=== PATIENT | female | born 1970 | race African-American/Black ===

== ENCOUNTER 2016-03-26 07:33 | Emergency (ER) | payer BC ==
[~2016-03-26] VITALS: Ht 152.4 cm; Wt 99.8 kg
[~2016-03-26 07:33] MED LIST: ACCUNEB SO1.25 MG/1; ACCUNEB SO1.25 MG/1 INH; ADVAIR HFA115 MCG/21 INH; ALBUTEROL2.5 MG/31 INH; BENADRYL25 MG PO; CEPACOL SORE T1 EAC9; CLARITIN10 MG; FERRACTIV IRON1 EACH PO; HYDROCODON-ACE1 EAC7 PO; IBUPROFEN 800800 MG PO; IRON325 PO; LEVOTHYROXIN0.025 MG PO; LOMOTIL TABLET1 EACH PO; MEDROL DOSPAK21 TAB PO; NORCO 5-325 TA1 EACH PO; PEPCID AC20 M1 PO; PREDNISONE 10 M10 MG; PREDNISONE 10 M10 MG PO; PREDNISONE 20 M20 M1 PO; PREDNISONE 20 M20 MG PO; PREDNISONE50 MG PO; PROAIR HFA8.5 GM INH; PROMETHAZINE-C120 ML PO; PROVENTIL HFA6.7 G1 INH; SINGULAIR 10 MG10 M1; VENTOLIN HFA 1818 GM INH; ZOFRAN4 MG PO; ZPAK; ZPAK PO
[2016-03-26] MEDS ORDERED: PROAIR HFA8.5 GM INH (08:00)
[2016-03-26] MEDS ORDERED: PREDNISONE50 MG PO (08:00)
== END 2016-03-26 08:40 | disposition home or self-care (01) ==
LOC: ER 07:33
DX: J45.901 Unspecified asthma with (acute) exacerbation (principal); E03.9 Hypothyroidism, unspecified; Z88.0 Allergy status to penicillin; F17.210 Nicotine dependence, cigarettes, uncomplicated; F10.99 Alcohol use, unspecified with unspecified alcohol-induced disorder

== ENCOUNTER 2016-12-14 01:01 | Emergency (ER) | payer OTHER ==
[~2016-12-14] VITALS: Ht 152.4 cm; Wt 104.3 kg
[2016-12-14] MEDS ORDERED: PREDNISONE 10 M10 MG (01:19)
[2016-12-14] MEDS ORDERED: PREDNISONE 20 M20 MG PO (02:06)
[2016-12-14] MEDS ORDERED: VENTOLIN HFA 1818 GM INH (02:06)
== END 2016-12-14 02:23 | disposition home or self-care (01) ==
LOC: ER 01:01
DX: J45.901 Unspecified asthma with (acute) exacerbation (principal); E03.9 Hypothyroidism, unspecified; F10.99 Alcohol use, unspecified with unspecified alcohol-induced disorder; Z86.2 Personal history of diseases of the blood and blood-forming organs and certain disorders involving the immune mechanism; Z88.0 Allergy status to penicillin; Z87.891 Personal history of nicotine dependence

== ENCOUNTER 2017-05-21 19:22 | Emergency (ER) | payer OTHER ==
[~2017-05-21] VITALS: Ht 152.4 cm; Wt 103.4 kg
[~2017-05-21 19:22] MED LIST changes: +CIPRO500 MG PO; +FLAGYL500 MG PO
[2017-05-21 19:48] LABS: ABSOLUTE NEUTROPHILS 6.7 thou/uL (1.4-8.2); BASOPHILS 0.5 % (0.0-2.0); HEMATOCRIT 35.4 % (37.0-47.0); HEMOGLOBIN 11.8 gm/dL (12.0-15.0); LYMPHOCYTES 21.6 % (24.0-44.0); MCH 29.6 pg (26.0-34.0); MCHC 33.3 g/dL (28.0-37.0); MCV 88.8 fL (80.0-100.0); PLATELET COUNT 280 thou/uL (150-400); POLYS 69.9 % (36.0-66.0); RBC 3.99 mil/uL (4.20-5.00); RDW 17.4 % (10.5-14.5); WBC 9.5 thou/uL (4.0-11.0)
[2017-05-21 19:49] LABS: URINE BILIRUBIN NEGATIVE (Negative); URINE BLOOD TRACE (Negative); URINE CLARITY CLEAR; URINE COLOR YELLOW; URINE GLUCOSE-RANDOM* NEGATIVE (Negative); URINE KETONES NEGATIVE (Negative); URINE LEUKOCYTES-REFLEX TRACE (Negative); URINE NITRITE-REFLEX NEGATIVE (Negative); URINE PROTEIN (DIPSTICK) TRACE (Negative); URINE UROBILINOGEN 0.2 E.U./dl (0.2-1.0)
[2017-05-21 19:55] LABS: CALCIUM 9.6 mg/dL (8.5-10.1); CREATININE 1.1 mg/dL (0.6-1.0); POTASSIUM 4.1 mmol/L (3.5-5.1)
[2017-05-21 20:01] LABS: ALBUMIN 3.7 g/dL (3.4-5.0); TOTAL BILIRUBIN 0.3 mg/dL (<0.1-1.0); TOTAL PROTEIN 8.1 g/dL (6.4-8.2)
[2017-05-21] MEDS ORDERED: CIPROFLOXACIN500 M1 PO (21:02)
[2017-05-21] MEDS ORDERED: SENNA-DOCUSATE1 EACH PO (21:02)
[2017-05-21] MEDS ORDERED: FLAGYL500 M1 PO (21:02)
[2017-05-21] MEDS ORDERED: ZOFRAN ODT4 MG PO (21:02)
[2017-05-21] MEDS ORDERED: NORCO 5-325 TA1 EACH PO (21:02)
[2017-05-21 21:53] VITALS: BP 139/98
== END 2017-05-21 21:55 | disposition home or self-care (01) ==
LOC: ER 19:22
PROVIDERS: Emergency Medicine
DX: K57.92 Diverticulitis of intestine, part unspecified, without perforation or abscess without bleeding (principal); E03.9 Hypothyroidism, unspecified; J45.909 Unspecified asthma, uncomplicated; Z86.2 Personal history of diseases of the blood and blood-forming organs and certain disorders involving the immune mechanism; Z88.0 Allergy status to penicillin; Z87.891 Personal history of nicotine dependence

== ENCOUNTER 2017-11-26 00:14 | Emergency (ER) | payer OTHER ==
[~2017-11-26] VITALS: Ht 152.4 cm; Wt 102.1 kg
[~2017-11-26 00:14] MED LIST changes: +CIPROFLOXACIN500 M1 PO; +FLAGYL500 M1 PO; +SENNA-DOCUSATE1 EACH PO; +ZOFRAN ODT4 MG PO
[2017-11-26 00:50] LABS: ABSOLUTE NEUTROPHILS 7.1 thou/uL (1.4-8.2); BASOPHILS 0.3 % (0.0-2.0); EOSINOPHILS 4.2 % (0.0-3.0); HEMATOCRIT 38.2 % (37.0-47.0); HEMOGLOBIN 13.1 gm/dL (12.0-15.0); LYMPHOCYTES 13.9 % (24.0-44.0); MCH 32.1 pg (26.0-34.0); MCHC 34.3 g/dL (28.0-37.0); MCV 93.8 fL (80.0-100.0); MONOCYTES 6.2 % (1.0-8.0); PLATELET COUNT 256 thou/uL (150-400); POLYS 75.4 % (36.0-66.0); RBC 4.07 mil/uL (4.20-5.00); RDW 14.9 % (10.5-14.5); WBC 9.4 thou/uL (4.0-11.0)
[2017-11-26 00:53] LABS: CALCIUM 9.7 mg/dL (8.5-10.1); CREATININE 1.1 mg/dL (0.6-1.0); POTASSIUM 3.4 mmol/L (3.5-5.1)
[2017-11-26 00:59] LABS: ALBUMIN 3.6 g/dL (3.4-5.0); TOTAL BILIRUBIN 0.3 mg/dL (<0.1-1.0); TOTAL PROTEIN 8.2 g/dL (6.4-8.2)
[2017-11-26] MEDS ORDERED: ZPAK PO (01:09)
[2017-11-26] MEDS ORDERED: PREDNISONE 20 M20 MG PO (01:09)
[2017-11-26] MEDS ORDERED: PROAIR HFA8.5 GM INH (01:09)
== END 2017-11-26 01:49 | disposition home or self-care (01) ==
LOC: ER 00:14
PROVIDERS: Emergency Medicine
DX: J45.901 Unspecified asthma with (acute) exacerbation (principal); E03.9 Hypothyroidism, unspecified; Z87.891 Personal history of nicotine dependence; Z88.0 Allergy status to penicillin; Z86.2 Personal history of diseases of the blood and blood-forming organs and certain disorders involving the immune mechanism

== ENCOUNTER 2018-02-24 17:35 | Inpatient (IN) | payer OTHER ==
[~2018-02-24] VITALS: Ht 170.2 cm; Wt 49.4 kg
--- NOTE | ~2018-02-24 | 2DMMODE ---
[facility] [place] [address] 2 D/M-MODE ECHOCARDIOGRAM Name: JOAQUIN VILLEGAS Room #: 208-P [facility]#: [id number] Admission: 02/24/18 Attend Phys: Gary Azul MD Discharge: Date of : 72 Date of Service: 02/25/[address] [facility] Report #: [id number] THIS REPORT FOR: //name// APPROVED REPORT Study performed: 02/25/2018 11:34:50 EXAM: Comprehensive 2D, Doppler, and color-flow Echocardiogram Patient Location: Bedside Status: routine BSA: 1.98 HR: 98 bpm BP: 129/82 mmHg Rhythm: NSR Other Information Study Quality: Good Indications Short of breath 2D Dimensions RVDd: 34.90 mm IVSd: 12.55 (7-11mm) LVOT Diam: 20.15 (18-24mm) LVDd: 36.01 mm PWd: 10.67 (7-11mm) LVDs: 24.74 (25-40mm) Aortic Root: 29.07 mm Volumes Left Atrial Volume (Systole) Single Plane 4CH: 23.08 mL Single Plane 2CH: 47.27 mL LA ESV Index: 19.00 mL/m2 Aortic Valve AoV Peak Arian.: 1.61 m/s AO Peak Gr.: 10.39 mmHg LVOT Max P.58 mmHg LVOT Max V: 1.28 m/s LEEANNE Vmax: 2.54 cm2 Mitral Valve E/A Ratio: 0.7 MV Decel. Time: 121.86 ms MV E Max Arian.: 1.01 m/s [facility] [address] [place] [address] 2 D/M-MODE ECHOCARDIOGRAM Name: JOAQUIN VILLEGAS Room #: 208-P [facility]#: [id number] Admission: 02/24/18 Attend Phys: Gary Azul MD Discharge: Date of : 72 Date of Service: 02/25/18 1300 Report #: [id number] MV A Arian.: 1.52 m/s MV PHT: 35.34 ms IVRT: 99.19 ms Pulmonary Valve PV Peak Raian.: 1.03 m/s PV Peak Gr.: 4.20 mmHg Pulmonary Vein P Vein S: 0.66 m/s P Vein A: 0.40 m/s P Vein D: 0.61 m/s P Vein A Dur.: 100.3 msec P Vein S/D Ratio: 1.08 Tricuspid Valve TR Peak Arian.: 1.73 m/s RAP Estimate: 5.00 mmHg TR Peak Gr.: 12.01 mmHg PA Pressure: 17.00 mmHg Left Ventricle The left ventricle is normal size. There is normal LV segmental wall motion. Mild concentric left ventricular hypertrophy. Left ventricular systolic function is normal. LVEF is 60-65%. Mild diastolic dysfunction is present (impaired relaxation pattern). Right Ventricle The right ventricle is normal size. The right ventricular systolic function is normal. Atria The left atrium size is normal. The right atrium size is normal. Aortic Valve The aortic valve is normal in structure. No aortic regurgitation is present. There is no aortic valvular stenosis. Mitral Valve The mitral valve is normal in structure. There is no mitral valve regurgitation noted. No evidence of mitral valve stenosis. Tricuspid Valve The tricuspid valve is normal in structure. Trace tricuspid regurgitation. Estimated PAP is 17mmHg. Pulmonic Valve Pulmonic valve is not well visualized. There is no pulmonic valvular [address] [address] 2 D/M-MODE ECHOCARDIOGRAM Name: NELLYJOAQUIN Room #: 208-P [facility]#: [id number] Admission: 02/24/18 Attend Phys: Gary Azul MD Discharge: Date of : 72 Date of Service: 02/25/18 1300 Report #: [id number] regurgitation noted. Great Vessels The aortic root is normal in size. IVC is normal in size and collapses >50% with inspiration. Pericardium There is no pericardial effusion. <Conclusion> Mild concentric left ventricular hypertrophy. Left ventricular systolic function is normal. Mild diastolic dysfunction is present (impaired relaxation pattern). The right ventricle is normal size. The left atrium size is normal. The aortic valve is normal in structure. The mitral valve is normal in structure. Trace tricuspid regurgitation. Estimated PAP is 17mmHg. <ELECTRONICALLY SIGNED> By: Evan Robles MD 02/25/18 1300 1300 1300 Evan Robles MD /INF
--- NOTE | ~2018-02-24 | EKG ---
[address] [address] ELECTROCARDIOGRAM REPORT Name: JOAQUIN VILLEGAS Idania Room #: 208-P [facility] M.R.#: [id number] Admission: 02/24/18 Attend Phys: Gary Azul MD Discharge: Date of : 72 Report #: [id number] THIS REPORT FOR: //name// [facility] ED Test Date: 2018-02-24 Test Time: 17:45:38 Pat Name: JOAQUIN VILLEGAS Department: Room: 208 Gender: F Diesel Motor Mechanic: SHAWN : 1970 Requested By: Kathy Aragon Order Number: [id number] MD: Festus Flores Measurements Intervals [place] Rate: 100 P: 68 [place]: 153 QRS: 53 QRSD: 90 T: 56 QT: 349 QTc: 451 Interpretive Statements Sinus tachycardia Compared to ECG 11/01/2013 20:44:32 Sinus rhythm no longer present Sinus arrhythmia no longer present Electronically Signed On 02-25-2018 11:18:50 GILL TENDER by Festus Flores [email or web address] <ELECTRONICALLY SIGNED> By: Festus Flores MD 02/25/18 1118 1745 1745 Festus Flores MD /BABAK
[2018-02-24 17:49] VITALS: BP 135/96
[2018-02-24 20:00] LABS: BASOPHILS 0.7 % (0.0-2.0); EOSINOPHILS 6.8 % (0.0-3.0); HEMATOCRIT 36.8 % (37.0-47.0); HEMOGLOBIN 12.3 gm/dL (12.0-15.0); LYMPHOCYTES 27.8 % (24.0-44.0); MCH 31.5 pg (26.0-34.0); MCHC 33.5 g/dL (28.0-37.0); MCV 94.3 fL (80.0-100.0); MONOCYTES 5.9 % (1.0-8.0); PLATELET COUNT 293 thou/uL (150-400); POLYS 58.8 % (36.0-66.0); RBC 3.91 mil/uL (4.20-5.00); RDW 17.2 % (10.5-14.5); WBC 6.9 thou/uL (4.0-11.0)
[2018-02-24 20:08] LABS: CALCIUM 9.1 mg/dL (8.5-10.1); CREATININE 0.9 mg/dL (0.6-1.0)
[2018-02-24 21:38] VITALS: BP 138/88
[2018-02-25 00:30] VITALS: BP 146/99
[2018-02-25 04:46] VITALS: BP 129/82
[2018-02-25 09:14] VITALS: BP 129/82
[2018-02-25 09:28] VITALS: BP 129/82
[2018-02-25 16:28] VITALS: BP 119/81
[2018-02-25 20:41] VITALS: BP 126/69
[2018-02-26 04:01] LABS: CALCIUM 9.8 mg/dL (8.5-10.1); CREATININE 0.9 mg/dL (0.6-1.0); POTASSIUM 4.4 mmol/L (3.5-5.1)
[2018-02-26 04:02] LABS: ABSOLUTE NEUTROPHILS 14.4 thou/uL (1.4-8.2); BASOPHILS 0.1 % (0.0-2.0); HEMATOCRIT 37.9 % (37.0-47.0); HEMOGLOBIN 12.2 gm/dL (12.0-15.0); LYMPHOCYTES 6.6 % (24.0-44.0); MCH 30.5 pg (26.0-34.0); MCHC 32.3 g/dL (28.0-37.0); MCV 94.5 fL (80.0-100.0); MONOCYTES 3.2 % (1.0-8.0); PLATELET COUNT 362 thou/uL (150-400); POLYS 90.1 % (36.0-66.0); RBC 4.02 mil/uL (4.20-5.00); RDW 17.4 % (10.5-14.5)
[2018-02-26 04:50] VITALS: BP 147/74
[2018-02-26 08:00] VITALS: BP 122/76
[2018-02-26] MEDS ORDERED: VENTOLIN HFA 1818 GM INH (10:03)
[2018-02-26] MEDS ORDERED: SYNTHROID75 MCG PO (10:03)
[2018-02-26] MEDS ORDERED: PREDNISONE 20 M20 MG PO (10:03)
[2018-02-26] MEDS ORDERED: ACETAMINOPHEN325 M1 PO (10:03)
[2018-02-26] MEDS ORDERED: ALBUTEROL2.5 MG/0.1 INH (10:04)
[2018-02-26 13:09] VITALS: BP 129/82
== END 2018-02-26 13:40 | disposition home or self-care (01) | DRG 202 ==
LOC: ER 17:35 → EROBS 20:24 → 2N 21:40
PROVIDERS: Hospitalist; Physician Assistant
DX: J45.902 Unspecified asthma with status asthmaticus (principal); Z68.1 Body mass index [BMI] 19.9 or less, adult; J45.901 Unspecified asthma with (acute) exacerbation; E66.9 Obesity, unspecified; E03.9 Hypothyroidism, unspecified; Z98.51 Tubal ligation status; Z88.0 Allergy status to penicillin; Z87.891 Personal history of nicotine dependence
CPT/HCPCS: 10797

== ENCOUNTER 2018-06-10 21:41 | Emergency (ER) | payer OTHER ==
[~2018-06-10] VITALS: Ht 152.4 cm; Wt 99.8 kg
[~2018-06-10 21:41] MED LIST changes: +ACETAMINOPHEN325 M1 PO; +ALBUTEROL2.5 MG/0.1 INH; +SYNTHROID75 MCG PO
[2018-06-10 22:47] LABS: BASOPHILS 0.3 % (0.0-2.0); EOSINOPHILS 2.2 % (0.0-3.0); HEMOGLOBIN 11.9 gm/dL (12.0-15.0); LYMPHOCYTES 20.2 % (24.0-44.0); MCH 31.5 pg (26.0-34.0); MCV 95.4 fL (80.0-100.0); MONOCYTES 4.8 % (1.0-8.0); PLATELET COUNT 303 thou/uL (150-400); POLYS 72.5 % (36.0-66.0); RBC 3.77 mil/uL (4.20-5.00); RDW 15.4 % (10.5-14.5); WBC 9.7 thou/uL (4.0-11.0)
[2018-06-10 22:53] LABS: CALCIUM 9.1 mg/dL (8.5-10.1); CREATININE 1.1 mg/dL (0.6-1.0); POTASSIUM 3.8 mmol/L (3.5-5.1)
[2018-06-10 22:59] LABS: ALBUMIN 3.5 g/dL (3.4-5.0); DIRECT BILIRUBIN 0.1 mg/dL (<0.1-0.3); TOTAL BILIRUBIN 0.3 mg/dL (<0.1-1.0); TOTAL PROTEIN 7.6 g/dL (6.4-8.2)
[2018-06-11] MEDS ORDERED: PERCOCET PO (01:36)
[2018-06-11] MEDS ORDERED: IBUPROFEN 400400 M2 PO (01:36)
[2018-06-11] MEDS ORDERED: FLAGYL500 M1 PO (01:36)
[2018-06-11] MEDS ORDERED: CIPROFLOXACIN500 M1 PO (01:36)
[2018-06-11] MEDS ORDERED: COLACE100 MG PO (01:36)
[2018-06-11 01:46] VITALS: BP 126/80
[2018-06-11] MEDS ORDERED: ZOFRAN4 MG PO (01:46)
== END 2018-06-11 01:46 | disposition home or self-care (01) ==
LOC: ER 21:41
PROVIDERS: Student in an Organized Health Care Education/Training Program
DX: K57.32 Diverticulitis of large intestine without perforation or abscess without bleeding (principal); E03.9 Hypothyroidism, unspecified; J45.909 Unspecified asthma, uncomplicated; Z88.0 Allergy status to penicillin; Z87.891 Personal history of nicotine dependence; Z86.2 Personal history of diseases of the blood and blood-forming organs and certain disorders involving the immune mechanism

== ENCOUNTER 2018-08-11 11:57 | Emergency (ER) | payer OTHER ==
[~2018-08-11] VITALS: Ht 152.4 cm; Wt 104.3 kg
[2018-08-11 14:15] VITALS: BP 133/96
== END 2018-08-11 14:17 | disposition home or self-care (01) ==
LOC: ER 11:57
DX: J45.901 Unspecified asthma with (acute) exacerbation (principal); E03.9 Hypothyroidism, unspecified; Z87.891 Personal history of nicotine dependence; Z88.0 Allergy status to penicillin

== ENCOUNTER → 2018-08-21 | Outpatient (CLI) | payer OTHER ==
[~2018-08-21] MED LIST changes: +COLACE100 MG PO; +IBUPROFEN 400400 M2 PO; +PERCOCET PO; +ZYRTEC10 MG PO
== END ==
LOC: CAT 08-16 09:57
DX: K57.92 Diverticulitis of intestine, part unspecified, without perforation or abscess without bleeding (principal); Z79.899 Other long term (current) drug therapy

== ENCOUNTER 2018-12-15 10:34 | Emergency (ER) | payer OTHER ==
[~2018-12-15] VITALS: Ht 152.4 cm; Wt 104.3 kg
[2018-12-15] MEDS ORDERED: ULTRAM 50MG TAB50 MG PO (12:30)
[2018-12-15 12:46] VITALS: BP 130/70
== END 2018-12-15 12:48 | disposition home or self-care (01) ==
LOC: ER 10:34
DX: S93.602A Unspecified sprain of left foot, initial encounter (principal); M79.662 Pain in left lower leg; E03.9 Hypothyroidism, unspecified; J45.909 Unspecified asthma, uncomplicated; Z98.51 Tubal ligation status; Z86.2 Personal history of diseases of the blood and blood-forming organs and certain disorders involving the immune mechanism; Z88.0 Allergy status to penicillin; Z87.891 Personal history of nicotine dependence; W18.39XA Other fall on same level, initial encounter; Y93.89 Activity, other specified; Y92.89 Other specified places as the place of occurrence of the external cause; Y99.8 Other external cause status

== ENCOUNTER 2020-01-20 11:35 | Emergency (ER) | payer OTHER ==
[~2020-01-20] VITALS: Ht 152.4 cm; Wt 104.3 kg
[~2020-01-20 11:35] MED LIST changes: +PREDNISONE5 MG PO; +ULTRAM 50MG TAB50 MG PO
[2020-01-20] MEDS ORDERED: TIROSINT100 MCG PO (13:26)
[2020-01-20] MEDS ORDERED: TESSALON PERLE100 MG PO ×2 (14:03→14:04)
[2020-01-20] MEDS ORDERED: ACCUNEB SO1.25 MG/1 INH (14:04)
[2020-01-20] MEDS ORDERED: VENTOLIN HFA 1818 GM INH (14:04)
[2020-01-20 14:37] VITALS: BP 137/77
== END 2020-01-20 14:37 | disposition home or self-care (01) ==
LOC: ER 11:35
DX: J45.909 Unspecified asthma, uncomplicated (principal); R06.00 Dyspnea, unspecified; E03.9 Hypothyroidism, unspecified; Z86.2 Personal history of diseases of the blood and blood-forming organs and certain disorders involving the immune mechanism; Z79.899 Other long term (current) drug therapy; Z88.0 Allergy status to penicillin; Z87.891 Personal history of nicotine dependence; Z20.828 Contact with and (suspected) exposure to other viral communicable diseases

== ENCOUNTER 2020-03-25 09:27 | Emergency (ER) | payer OTHER ==
[~2020-03-25] VITALS: Ht 152.4 cm; Wt 108.9 kg
[~2020-03-25 09:27] MED LIST changes: +TESSALON PERLE100 MG PO; +TIROSINT100 MCG PO
[2020-03-25] MEDS ORDERED: [UNRECOGNIZED DRUG - REMARK] (09:46)
[2020-03-25 10:39] LABS: ABSOLUTE NEUTROPHILS 3.8 thou/uL (1.4-8.2); BASOPHILS 0.6 % (0.0-2.0); EOSINOPHILS 2.5 % (0.0-3.0); HEMATOCRIT 33.8 % (37.0-47.0); HEMOGLOBIN 10.8 gm/dL (12.0-15.0); LYMPHOCYTES 23.1 % (24.0-44.0); MCH 31.1 pg (26.0-34.0); MCHC 32.1 g/dL (28.0-37.0); MCV 96.7 fL (80.0-100.0); MONOCYTES 8.1 % (1.0-8.0); PLATELET COUNT 324 thou/uL (150-400); POLYS 65.7 % (36.0-66.0); RBC 3.49 mil/uL (4.20-5.00); RDW 17.9 % (10.5-14.5); WBC 5.8 thou/uL (4.0-11.0)
[2020-03-25 10:42] LABS: URINE BILIRUBIN NEGATIVE (Negative); URINE BLOOD 1+ (Negative); URINE CLARITY CLEAR; URINE COLOR YELLOW; URINE GLUCOSE-RANDOM* NEGATIVE (Negative); URINE KETONES NEGATIVE (Negative); URINE NITRITE-REFLEX NEGATIVE (Negative); URINE PROTEIN (DIPSTICK) NEGATIVE (Negative); URINE SPECIFIC GRAVITY 1.025 (1.005-1.035); URINE UROBILINOGEN 0.2 E.U./dl (0.2-1.0)
[2020-03-25 10:44] LABS: URINE LEUKOCYTES-REFLEX 1+ (Negative)
[2020-03-25 10:47] LABS: CALCIUM 9.3 mg/dL (8.5-10.1); CREATININE 0.8 mg/dL (0.6-1.0); POTASSIUM 3.6 mmol/L (3.5-5.1)
[2020-03-25 10:53] LABS: ALBUMIN 3.3 g/dL (3.4-5.0); TOTAL BILIRUBIN 0.2 mg/dL (0.2-1.0)
[2020-03-25 11:43] LABS: BACTERIA-REFLEX 1-9 Few /HPF (None Seen); CRYSTALS None Seen /LPF (None Seen); SQUAMOUS 0-3 Few /LPF (0-3); URINE RBC None Seen /HPF (0-2)
[2020-03-25 11:44] LABS: CASTS None Seen /LPF (None Seen)
[2020-03-25] MEDS ORDERED: MACROBID 100 M100 M1 PO (13:04)
[2020-03-25 13:27] VITALS: BP 192/76
== END 2020-03-25 13:28 | disposition home or self-care (01) ==
LOC: ER 09:27
PROVIDERS: Emergency Medicine
DX: N39.0 Urinary tract infection, site not specified (principal); E03.9 Hypothyroidism, unspecified; J45.909 Unspecified asthma, uncomplicated; Z98.51 Tubal ligation status; Z79.899 Other long term (current) drug therapy; Z88.0 Allergy status to penicillin; Z87.891 Personal history of nicotine dependence

== ENCOUNTER 2020-04-24 20:50 | Emergency (ER) | payer OTHER ==
[~2020-04-24] VITALS: Ht 152.4 cm; Wt 113.4 kg
[~2020-04-24 20:50] MED LIST changes: +BACTRIM DS TAB1 EACH PO; +MACROBID 100 M100 M1 PO; +[UNRECOGNIZED DRUG - REMARK]
[2020-04-24 22:07] LABS: BASOPHILS 0.2 % (0.0-2.0); EOSINOPHILS 6.5 % (0.0-3.0); HEMATOCRIT 37.1 % (37.0-47.0); HEMOGLOBIN 11.7 gm/dL (12.0-15.0); LYMPHOCYTES 17.2 % (24.0-44.0); MCH 28.1 pg (26.0-34.0); MCHC 31.7 g/dL (28.0-37.0); MCV 88.7 fL (80.0-100.0); PLATELET COUNT 246 thou/uL (150-400); POLYS 64.1 % (36.0-66.0); RBC 4.18 mil/uL (4.20-5.00); RDW 18.8 % (10.5-14.5); WBC 4.7 thou/uL (4.0-11.0)
[2020-04-24 22:09] LABS: ANION GAP 10 mmol/L (7-16); BUN 9 mg/dL (7-18); CALCIUM 9.1 mg/dL (8.5-10.1); CHLORIDE 98 mmol/L (98-107); CO2 28 mmol/L (21-32); CREATININE 1.2 mg/dL (0.6-1.0); GLUCOSE 103 mg/dL (74-106); POTASSIUM 4.3 mmol/L (3.5-5.1); SODIUM 136 mmol/L (136-145)
[2020-04-24 22:10] LABS: URINE BILIRUBIN NEGATIVE (Negative); URINE BLOOD NEGATIVE (Negative); URINE CLARITY SL CLOUDY; URINE COLOR YELLOW; URINE GLUCOSE-RANDOM* NEGATIVE (Negative); URINE KETONES NEGATIVE (Negative); URINE NITRITE-REFLEX NEGATIVE (Negative); URINE PROTEIN (DIPSTICK) TRACE (Negative)
[2020-04-24 22:15] LABS: ALBUMIN 3.4 g/dL (3.4-5.0); DIRECT BILIRUBIN < 0.1 mg/dL (<0.1-0.2); SGOT 30 U/L (15-37); SGPT 33 U/L (14-59); TOTAL BILIRUBIN 0.3 mg/dL (0.2-1.0); TOTAL PROTEIN 7.8 g/dL (6.4-8.2)
[2020-04-24 22:21] LABS: URINE LEUKOCYTES-REFLEX 2+ (Negative)
[2020-04-24 22:25] LABS: BACTERIA-REFLEX 1-9 Few /HPF (None Seen); CASTS None Seen /LPF (None Seen); CRYSTALS None Seen /LPF (None Seen); MUCUS 0-3 Light strn/LPF (None Seen); SQUAMOUS 0-3 Few /LPF (0-3); URINE RBC 0-2 Rare /HPF (0-2); URINE WBC-REFLEX 6-15 Few /HPF (0-5)
[2020-04-25 00:51] VITALS: BP 102/75
[2020-04-25] MEDS ORDERED: KEFLEX500 M1 PO (00:51)
--- NOTE | 2020-04-26 08:05 | EKG ---
[address] [address] ELECTROCARDIOGRAM REPORT Name: JOAQUIN VILLEGAS Room #: [facility]#: [id number] Admission: 04/24/20 Attend Phys: Discharge: 04/25/20 Date of : 72 Report #: [id number] [facility] ED Test Date: 2020-04-24 Test Time: 21:04:00 Pat Name: JOAQUIN VILLEGAS Department: Room: Gender: F Sales Stock Associate: [id number] : 1970 Requested By: Cierra Arredondo Order Number: [id number] MD: Festus Flores Measurements Intervals [place] Rate: 125 P: 46 [place]: 124 QRS: 29 QRSD: 91 T: 24 QT: 303 QTc: 437 Interpretive Statements Sinus tachycardia Baseline wander in lead(s) V1 Compared to ECG 02/24/2018 17:45:38 No significant changes Electronically Signed On 04-26-2020 8:04:57 TRANSIT WORKER by Festus Flores [email or web address] <ELECTRONICALLY SIGNED> By: Festus Flores MD 04/26/20803 03 03 Festus Flores MD /BABAK
== END 2020-04-25 01:01 | disposition home or self-care (01) ==
LOC: ER 20:50
PROVIDERS: Emergency Medicine
DX: U07.1 COVID-19 (principal); A41.9 Sepsis, unspecified organism; N39.0 Urinary tract infection, site not specified; E03.9 Hypothyroidism, unspecified; J45.909 Unspecified asthma, uncomplicated; Z86.2 Personal history of diseases of the blood and blood-forming organs and certain disorders involving the immune mechanism; Z79.899 Other long term (current) drug therapy; Z88.0 Allergy status to penicillin; Z88.2 Allergy status to sulfonamides; Z88.8 Allergy status to other drugs, medicaments and biological substances; Z87.891 Personal history of nicotine dependence

== ENCOUNTER 2020-10-08 18:54 | Emergency (ER) | payer OTHER ==
[~2020-10-08] VITALS: Ht 152.4 cm; Wt 113.4 kg
--- NOTE | ~2020-10-08 | EMS ---
[address] [address] EMS Patient Care Report Name: JOAQUIN VILLEGAS Room #: DEP [facility]#: [id number] Admission: 10/08/20 Attend Phys: Discharge: 10/08/20 Date of : 72 Report #: [id number] THIS REPORT FOR: //name// Report Transmitted: 10/11/2020 14:07 EMS Care Summary [facility] Incident [id number] @ 10/08/2020 18:08 Incident Location [id number] [place] [address] [place] [address] Patient JOAQUIN VILLEGAS Female, 50 Years 1970 Patient Address [address] [place], [place] [id number] Patient History Asthma, Patient Allergies Penicillin allergy, Patient Medications None Reported, Chief Complaint overdose Disposition Transported No Lights/[place] Reason Unconscious/Fainting Transported To [facility] Narrative squad 52 was dispatched to a call for fainting CC: thc overdose [facility] [address] [place] [address] EMS Patient Care Report Name: JOAQUIN VILLEGAS Room #: DEP Elisha#: [id number] Admission: 10/08/20 Attend Phys: Discharge: 10/08/20 Date of : 72 Report #: [id number] history of event pt stated pt stated she took to [facility] around 2 hr ago and while walking around [facility] decided she just needed sit down and couldn't get up and wanted to go up to the hospital. pt stated "I'm just to high" upon arrival pt was found Aox4 gcs15 seat on a flat cart in [facility] the pt had a patent airway and normal respirations with clear lung sounds and equal chest rise and fall. pt skin was pink warm and dry and strong radial pulses were present. eye were perrl and there were no signs of facial droop slurred speech or arm drift pt was able to walk with assistance. pt had complaints of being tired and light headed. no other dcapbtls were found and the pt had no other complaints at this time pt was provided supportive care vitals and ecg were assessed and monitored in route pt was transported to the closest available appropriate facility and pt care was taken over by nursing staff Initial Vitals @18:26P: 129,SpO2: 100, @18:25P: 110,R: 15,BP: 149/94,Pain: 0/10,GCS: 15,SpO2: 98,Revised Trauma: 12,CT Suspected: false @18:43P: 116,R: 15,BP: 125/82,Pain: 0/10,GCS: 15,SpO2: 98,Revised Trauma: 12, Assessments @18:29MENTAL:No Abnormalities,SKIN:No Abnormalities,HEENT:Head/Face: No Abnormalities,Eyes: No Abnormalities,Neck/Airway: No Abnormalities,LUNG SOUNDS:General: No Abnormalities,Left Upper: No Abnormalities,Right Upper: No Abnormalities,Left Lower: No Abnormalities,Right Lower: No Abnormalities,ABDOMEN:General: No Abnormalities,Left Upper: No Abnormalities,Right Upper: No Abnormalities,Left Lower: No Abnormalities,Right Lower: No Abnormalities,PELVIS//GI:No Abnormalities,EXTREMITIES:Left Arm: No Abnormalities,Right Arm: No Abnormalities,Left Leg: No Abnormalities,Right Leg: No Abnormalities,PULSE:NEURO:No Abnormalities, Impression Overdose - Cannabis Procedures @18:28ALS AssessmentResponse: UnchangedSucceeded@18:483-Lead ECGResponse: UnchangedSucceeded Timeline 18:08,Call Received 18:08,Psap Call 18:08,Dispatched [address] [address] EMS Patient Care Report Name: JOAQUIN VILLEGAS Room #: [facility]#: [id number] Admission: 10/08/20 Attend Phys: Discharge: 10/08/20 Date of : 72 Report #: [id number] 18:09,En Route 18:12,Initial Responder On Scene 18:17,On Scene 18:18,At Patient 18:25,BP: 149/94 M,PULSE: 110,RR: 15 R,SPO2: 98 Ox,ETCO2: ,BG: ,PAIN: 0,GCS: 15, 18:26,BP: / M,PULSE: 129,RR: R,SPO2: 100 Ox,ETCO2: ,BG: ,PAIN: ,GCS: , 18:28,Depart Scene 18:28,ALS Assessment,Response: UnchangedSucceeded, 18:43,BP: 125/82 M,PULSE: 116,RR: 15 R,SPO2: 98 Ox,ETCO2: ,BG: ,PAIN: 0,GCS: 15, 18:48,3-Lead ECG,Response: UnchangedSucceeded, 18:49,At Destination 19:19,Call Closed Disclaimer v1.1 Copyright 2020 [employer] This EMS Care Summary contains data elements from the applicable legal record (which may be displayed differently). It is designed to provide pertinent information for the following purposes: continuity of care, clinical quality, and state data reporting. The complete legal record is available to ED staff and administrators of the receiving hospital in [employer]'s Patient Tracker. All data is provided "as is."
[~2020-10-08 18:54] MED LIST changes: +KEFLEX500 M1 PO
[2020-10-08 20:42] VITALS: BP 105/60
== END 2020-10-08 20:43 | disposition home or self-care (01) ==
LOC: ER 18:54
DX: F12.929 Cannabis use, unspecified with intoxication, unspecified (principal); E03.9 Hypothyroidism, unspecified; J45.909 Unspecified asthma, uncomplicated; Z79.51 Long term (current) use of inhaled steroids; Z79.899 Other long term (current) drug therapy; Z88.0 Allergy status to penicillin; Z88.2 Allergy status to sulfonamides; Z88.8 Allergy status to other drugs, medicaments and biological substances; Z87.891 Personal history of nicotine dependence

== ENCOUNTER 2020-10-31 10:49 | Emergency (ER) | payer OTHER ==
[~2020-10-31] VITALS: Ht 152.4 cm; Wt 68.0 kg
[2020-10-31] MEDS ORDERED: FLUTICASONE-SA1 EAC1 INH (10:59)
[2020-10-31 13:32] VITALS: BP 118/87
== END 2020-10-31 13:34 | disposition home or self-care (01) ==
LOC: ER 10:49
PROVIDERS: Emergency Medicine
DX: R06.02 Shortness of breath (principal); Z20.822 Contact with and (suspected) exposure to COVID-19; J02.9 Acute pharyngitis, unspecified; E03.9 Hypothyroidism, unspecified; J45.909 Unspecified asthma, uncomplicated; F12.90 Cannabis use, unspecified, uncomplicated; Z79.51 Long term (current) use of inhaled steroids; Z79.899 Other long term (current) drug therapy; Z88.2 Allergy status to sulfonamides; Z88.0 Allergy status to penicillin; Z87.891 Personal history of nicotine dependence

== ENCOUNTER → 2021-02-24 | Outpatient (CLI) | payer OTHER ==
[~2021-02-24] MED LIST changes: +FLUTICASONE-SA1 EAC1 INH
== END ==
LOC: RAD 12:10
PROVIDERS: ATTEND Nurse Practitioner
DX: J45.40 Moderate persistent asthma, uncomplicated (principal)

== ENCOUNTER → 2021-05-02 | Outpatient (CLI) | payer OTHER | LOC: CAT 03-28 10:04 | PROVIDERS: ATTEND Internal Medicine | DX: N20.0 Calculus of kidney (principal); R59.0 Localized enlarged lymph nodes; J98.4 Other disorders of lung ==